=== PATIENT | male | born 1985 | race African-American/Black ===

== ENCOUNTER 2018-10-13 06:01 | Emergency (ER) | payer MEDICAID ==
[~2018-10-13] VITALS: Ht 180.3 cm; Wt 98.0 kg
[2018-10-13] MEDS ORDERED: KETOROLAC 60MG/2ML VIAL IM ONE (10:00)
[2018-10-13 10:36] VITALS: BP 142/72
== END 2018-10-13 10:36 | disposition home or self-care (01) ==
LOC: ER 06:01
DX: K04.7 Periapical abscess without sinus (principal); H92.01 Otalgia, right ear; R68.84 Jaw pain; I10 Essential (primary) hypertension; F17.210 Nicotine dependence, cigarettes, uncomplicated; F12.10 Cannabis abuse, uncomplicated; Z71.6 Tobacco abuse counseling
CPT/HCPCS: 96372; 99283; 99406; J1885

== ENCOUNTER 2018-11-19 17:12 | Emergency (ER) | payer MEDICAID ==
[~2018-11-19] VITALS: Ht 180.3 cm; Wt 88.0 kg
[2018-11-19] MEDS ORDERED: KETOROLAC 30MG/ML VIAL IV STA (23:42)
[2018-11-19] MEDS ORDERED: ONDANSETRON HCL 4MG/2ML INJ IV STA (23:42)
[2018-11-19] MEDS ORDERED: SODIUM CHLORIDE 0.9% 1,000 ML IV ONE (23:42)
[2018-11-19 23:52] LABS: EOSINOPHILS % 1.4 % (0.0-5.0); HEMATOCRIT. 42.7 % (42.0-52.0); HEMOGLOBIN. 14.3 g/dL (14.0-18.0); MEAN CORPUSCULAR HEMOGLOBIN 29.9 pg (28.0-32.0); MEAN CORPUSCULAR VOLUME 89.3 fL (80.0-94.0); MEAN PLATELET VOLUME 9.5 fl (7.4-10.4); NEUTROPHILS % 59.6 % (40.0-76.0); PLATELET 347 x1000/uL (130-400); RED BLOOD CELL COUNT 4.78 mill/uL (4.7-6.1); RED CELL DISTRIBUTION WIDTH 14.4 % (11.6-14.6)
[2018-11-19 23:58] LABS: PROTHROMBIN TIME 10.2 sec (9.1-11.1)
[2018-11-20] LABS: CHLORIDE 107 mEq/L (98-107)
[2018-11-20 02:07] VITALS: BP 124/72
== END 2018-11-20 02:08 | disposition home or self-care (01) ==
LOC: ER 17:12
DX: R10.84 Generalized abdominal pain (principal); F12.10 Cannabis abuse, uncomplicated; G40.909 Epilepsy, unspecified, not intractable, without status epilepticus; F10.21 Alcohol dependence, in remission; Z59.0 Homelessness
CPT/HCPCS: 36415; 74021; 80053; 83690; 84484; 85025; 85610; 96361; 96374; 96375; 99284; J1885; J2405; J7030; Z7610